=== PATIENT | female | born 1945 | race Caucasian/White ===

== ENCOUNTER → 2018-07-10 08:11 | Outpatient (CLI) | payer OTHER, SELFPAY ==
[2018-07-10 08:46] LABS: Add Manual Diff / Slide Review NO; Eosinophils Percent Auto 0.8 % (2-4); Hemoglobin 14.7 g/dL (12.0-16.0); Lymphocytes Percent Auto 25.9 % (25-40); Mean Corpuscular HGB Conc 35.1 % (30-36); Mean Corpuscular Hemoglobin 31.4 PG (26-34); Mean Corpuscular Volume 89.4 fL (80-100); Monocytes Percent Auto 10.7 % (3-14); Neutrophils Absolute Auto 3100 /uL (3000-5900); Neutrophils Percent Auto 61.6 % (50-75); Platelet Count 229 X10^3/uL (150-400); Red Blood Cell Count 4.69 X10^6/uL (4.0-5.2); Red Cell Distribution Width 13.9 % (11.6-14.8)
[2018-07-10 08:55] LABS: Appearance Urine UA CLEAR; Bilirubin Urine UA NEGATIVE (NEGATIVE); Color Urine UA YELLOW; Glucose Urine UA NEGATIVE (Normal); Ketones Urine UA NEGATIVE (NEGATIVE); Leukocyte Esterase Urine UA TRACE (NEGATIVE); Nitrite Urine UA Negative (Negative); Occult Blood Urine UA NEGATIVE (Negative); Protein Urine UA NEGATIVE (Negative); Urobilinogen Urine UA 0.2 E.U./dL (0.2)
[2018-07-10 08:59] LABS: Alanine Aminotransferase 33 IU/L (9-52); Albumin 4.7 g/dL (3.5-5.0); Albumin Globulin Ratio 1.4 (1.0-2.8); Alkaline Phosphatase 48 U/L (38-126); Aspartate Aminotransferase 33 IU/L (14-36); BUN Creatinine Ratio 18.8 (6-22); Bilirubin Total 0.4 mg/dL (0.2-1.3); Blood Urea Nitrogen 15 mg/dL (7-17); Calcium 9.6 mg/dL (8.4-10.2); Carbon Dioxide 37 mmol/L (22-32); Chloride 99 mmol/L (98-107); Cholesterol 224 mg/dL (140-199); Estimated Glomerular Filt Rate > 60.0 mL/min (>60); Globulin 3.3 g/dL (1.7-4.1); Glucose 92 mg/dL (80-110); HDL Cholesterol 71 mg/dL (40-60); HEMOLYSIS < 15 (0-50); LDL Cholesterol Calculated 127 mg/dL (<100); Potassium 3.9 mmol/L (3.4-5.1); Sodium 144 mmol/L (137-145); Triglycerides 131 mg/dL (35-150)
[2018-07-10 09:22] LABS: RBC Urine None Seen (0-5/HPF)
[2018-07-10 09:34] LABS: Bacteria Urine Occasional (0-1); Culture Indicated Urine Specimen Cultured; WBC Urine 0-1/HPF (0-5/HPF)
== END ==
PROVIDERS: PCP Family Medicine; Visit Provider Family Medicine
DX: I10 Essential (primary) hypertension (principal); E78.5 Hyperlipidemia, unspecified
CPT/HCPCS: 36415; 80053; 80061; 81003; 81015; 84443; 85025; 87086

== ENCOUNTER 2019-04-20 07:33 | Day surgery (SDC) | payer OTHER, SELFPAY ==
[2019-04-04 10:37] VITALS: BMI 25.0
[2019-04-20] VITALS (8 sets, daily range): BP systolic 109–153; BP diastolic 60–87; PULSE 49–71; RESP 9–16; TEMP 35.9–36.8; O2SAT 93–100; BMI 25.0
[2019-04-20] MEDS: LACTATED RINGERS 1,000 ML 100 ML IV (08:15)
--- NOTE | 2019-04-20 08:19 | PM.PREOP ---
Pre-operative Note Interval Note History & Physical reviewed/Exam performed by Physician: Yes Changes to H&P: No
[2019-04-20] MEDS: CEFAZOLIN 2 GM/100 ML FROZ.PIGGY IV (08:32)
[2019-04-20] MEDS: BUPIVACAINE 0.5% W/ EPI (PF) VIAL 30 ML INJ (09:02)
--- NOTE | 2019-04-20 10:05 | PM.OP.1 ---
Operative Date/Time/Diagnoses Date of procedure: 04/20/19 Time of procedure: 10:05 Pre-op diagnosis: Symptomatic uterovaginal prolapse Post-op diagnosis: same Procedure & Clinicians Procedure: LeFort colpocleisis Same procedure as scheduled: Yes Indications: Symptomatic uterovaginal prolapse Surgeon: Indiana Knapp Click Yes if Unassisted: Yes Anesthesia Type: General Operative Notes Findings: Uterovaginal prolapse Closure Type: primary Specimen(s): none sent Estimated Blood Loss (mL): 50 Blood products transfused: none Procedure in detail: - Patient was brought to the operating room where she was in a supine position in [facility] and underwent a light general anesthetic. She was prepped and draped in the usual sterile fashion. Her bladder was drained. Antibiotics, 2 g of Ancef, were in prior to beginning of the case. Warming was in place. Pulsatile stockings were in place. Area on anterior and posterior wall of the prolapse were marked with a marking pen and injected with a dilute solution of half percent Marcaine with epinephrine. The skin was incised with a scalpel and undermined with and removed removed with Metzenbaum scissors. 2-0 Vicryl suture was used in an interrupted fashion to close anterior to posterior on the sides creating a tunnel from the cervix to the external area. 0 Vicryl suture interrupted was placed from the anterior cervical fascia to the posterior cervical fascia to invert the cervix. A plicating suture with 0 Vicryl suture was used at the bladder neck. The anterior to posterior vaginal incision was closed 2 0 Vicryl suture. Counts of instruments and sponges were correct. Patient went to recovery room in good condition. Complications: none Condition: stable Disposition: same day surgery Plan for aftercare: Follow-up in 2 weeks
--- NOTE | 2019-04-20 10:09 | P.OP_ITS ---
Operative Date/Time/Diagnoses Date of procedure: 04/20/19 Time of procedure: 10:05 Pre-op diagnosis: Symptomatic uterovaginal prolapse Post-op diagnosis: same Procedure & Clinicians Procedure: LeFort colpocleisis Same procedure as scheduled: Yes Indications: Symptomatic uterovaginal prolapse Surgeon: nIdiana Knapp Click Yes if Unassisted: Yes Anesthesia Type: General Operative Notes Findings: Uterovaginal prolapse Closure Type: primary Specimen(s): none sent Estimated Blood Loss (mL): 50 Blood products transfused: none Procedure in detail: - Patient was brought to the operating room where she was in a supine position in [facility] and underwent a light general anesthetic. She was prepped and draped in the usual sterile fashion. Her bladder was drained. Antibiotics, 2 g of Ancef, were in prior to beginning of the case. Warming was in place. Pulsatile stockings were in place. Area on anterior and posterior wall of the prolapse were marked with a marking pen and injected with a dilute solution of half percent Marcaine with epinephrine. The skin was incised with a scalpel and undermined with and removed removed with Metzenbaum scissors. 2-0 Vicryl suture was used in an interrupted fashion to close anterior to posterior on the sides creating a tunnel from the cervix to the external area. 0 Vicryl suture interrupted was placed from the anterior cervical fascia to the posterior cervical fascia to invert the cervix. A plicating suture with 0 Vicryl suture was used at the bladder neck. The anterior to posterior vaginal incision was closed 2 0 Vicryl suture. Counts of instruments and sponges were correct. Patient went to recovery room in good condition. Complications: none Condition: stable Disposition: same day surgery Plan for aftercare: Follow-up in 2 weeks
--- NOTE | 2019-04-20 11:01 | SUR.PHASEII ---
Assumed care at this time from Alexander Flynn RN. Prescription given to son to get filled, pt drinking and has no complaints at this time
--- NOTE | 2019-04-20 11:08 | SUR.PHASEII ---
Son at bedside, no complaints from pt.
--- NOTE | 2019-04-20 11:29 | SUR.PHASEII ---
Assisted to BR to void, voided on commode. Steady when up.
--- NOTE | 2019-04-20 17:47 | SUR.PHASEII ---
Late entry: Pt dressed when ready and left when ready and in stable condition.
== END 2019-04-20 11:45 | disposition home or self-care (01) ==
PROVIDERS: PCP Family Medicine; Visit Provider Specialist
PROC: (CPT 57120; principal; 2019-04-20 08:45)
DX: N81.3 Complete uterovaginal prolapse (principal); I10 Essential (primary) hypertension; E78.5 Hyperlipidemia, unspecified
CPT/HCPCS: 57120; J0690; J1100; J1885; J2405; J2704; J3010

== ENCOUNTER → 2019-05-07 08:28 | Outpatient (CLI) | payer OTHER, SELFPAY ==
[2019-05-07 09:48] LABS: Appearance Urine UA CLEAR; Bilirubin Urine UA NEGATIVE (NEGATIVE); Color Urine UA YELLOW; Glucose Urine UA NEGATIVE (Negative); Ketones Urine UA NEGATIVE (NEGATIVE); Leukocyte Esterase Urine UA 3+ (NEGATIVE); Nitrite Urine UA NEGATIVE (Negative); Occult Blood Urine UA TRACE-INTACT (Negative); Protein Urine UA TRACE (Negative); Specific Gravity Urine UA 1.015 (1.000-1.035); Urobilinogen Urine UA 0.2 E.U./dL (0.2)
[2019-05-07 10:07] LABS: Bacteria Urine None Seen
[2019-05-07 10:08] LABS: Amorphous Sediment Urine 3+; Culture Indicated Urine Cult Not Indicated; RBC Urine 1-5/HPF (0-5/HPF); Squamous Epithelial Cell Urine 5-10 /HPF (0-5/HPF); Transitional Epi Cells Urine 5-10/HPF (0-5/HPF); WBC Urine 5-10/HPF (0-5/HPF)
[2019-05-07 10:59] LABS: Add Manual Diff / Slide Review NO; Basophils Absolute Auto 100 /uL (0-100); Basophils Percent Auto 1.1 % (0-2); Eosinophils Absolute Auto 100 /uL (0-450); Eosinophils Percent Auto 2.1 % (2-4); Hematocrit 40.1 % (36-46); Hemoglobin 13.6 g/dL (12.0-16.0); Lymphocytes Absolute Auto 1200 /uL (1100-4500); Mean Corpuscular Hemoglobin 30.8 PG (26-34); Mean Corpuscular Volume 90.7 fL (80-100); Monocytes Absolute Auto 500 /uL (0-900); Monocytes Percent Auto 11.5 % (3-14); Neutrophils Absolute Auto 2600 /uL (1500-7000); Neutrophils Percent Auto 59.3 % (50-75); Platelet Count 243 X10^3/uL (150-400); Red Blood Cell Count 4.42 X10^6/uL (4.0-5.2); Red Cell Distribution Width 13.5 % (11.6-14.8); White Blood Cell Count 4.4 X10^3/uL (4.5-11.0)
[2019-05-07 11:18] LABS: Alanine Aminotransferase 18 IU/L (9-52); Albumin 4.4 g/dL (3.5-5.0); Albumin Globulin Ratio 1.4 (1.0-2.8); Alkaline Phosphatase 54 U/L (38-126); Aspartate Aminotransferase 26 IU/L (14-36); BUN Creatinine Ratio 21.4 (6-22); Bilirubin Total 0.4 mg/dL (0.2-1.3); Blood Urea Nitrogen 15 mg/dL (7-17); Calcium 9.4 mg/dL (8.4-10.2); Carbon Dioxide 33 mmol/L (22-32); Chloride 101 mmol/L (98-107); Cholesterol 208 mg/dL (140-199); Estimated Glomerular Filt Rate > 60.0 mL/min (>60); Globulin 3.2 g/dL (1.7-4.1); Glucose 92 mg/dL (80-110); HDL Cholesterol 63 mg/dL (40-60); HEMOLYSIS < 15 (0-50); LDL Cholesterol Calculated 121 mg/dL (<100); Potassium 4.4 mmol/L (3.4-5.1); Sodium 142 mmol/L (137-145); Total Protein 7.6 g/dL (6.3-8.2); Triglycerides 122 mg/dL (35-150)
[2019-05-07 11:43] LABS: Thyroid Stimulating Hormone 4.01 uIU/mL (0.47-4.68)
== END ==
PROVIDERS: PCP Family Medicine; Visit Provider Family Medicine
DX: E78.5 Hyperlipidemia, unspecified (principal); I10 Essential (primary) hypertension; Z51.81 Encounter for therapeutic drug level monitoring
CPT/HCPCS: 36415; 80053; 80061; 81003; 81015; 84443; 85025

== ENCOUNTER → 2019-11-27 09:03 | Outpatient (CLI) | payer MEDICARE, SELFPAY ==
[2019-11-27 11:15] LABS: Alanine Aminotransferase 19 IU/L (<35); Albumin 4.3 g/dL (3.5-5.0); Albumin Globulin Ratio 1.3 (1.0-2.8); Alkaline Phosphatase 60 U/L (38-126); Aspartate Aminotransferase 28 IU/L (14-36); BUN Creatinine Ratio 21.3 (6-22); Bilirubin Total 0.3 mg/dL (0.2-1.3); Blood Urea Nitrogen 17 mg/dL (7-17); Calcium 9.5 mg/dL (8.4-10.2); Carbon Dioxide 31 mmol/L (22-32); Chloride 94 mmol/L (98-107); Cholesterol 216 mg/dL (140-199); Estimated Glomerular Filt Rate > 60.0 mL/min (>60); Globulin 3.2 g/dL (1.7-4.1); Glucose 84 mg/dL (80-110); HDL Cholesterol 61 mg/dL (40-60); HEMOLYSIS < 15 (0-50); LDL Cholesterol Calculated 128 mg/dL (<100); Potassium 4.7 mmol/L (3.4-5.1); Sodium 135 mmol/L (137-145); Total Protein 7.5 g/dL (6.3-8.2); Triglycerides 137 mg/dL (35-150)
== END ==
PROVIDERS: PCP Family Medicine; Visit Provider Family Medicine
DX: E78.5 Hyperlipidemia, unspecified (principal); I10 Essential (primary) hypertension
CPT/HCPCS: 36415; 80053; 80061

== ENCOUNTER → 2020-08-19 15:09 | Outpatient (CLI) | payer MEDICARE, SELFPAY | PROVIDERS: PCP Family Medicine; Visit Provider Specialist | DX: N39.0 Urinary tract infection, site not specified (principal); N36.2 Urethral caruncle; N95.2 Postmenopausal atrophic vaginitis; R39.9 Unspecified symptoms and signs involving the genitourinary system | CPT/HCPCS: 51798; 81002; 87086; 99214 ==

== ENCOUNTER → 2020-09-22 08:54 | Outpatient (CLI) | payer MEDICARE, SELFPAY ==
[2020-09-22 09:49] LABS: Alanine Aminotransferase 23 IU/L (<35); Albumin 4.3 g/dL (3.5-5.0); Albumin Globulin Ratio 1.2 (1.0-2.8); Alkaline Phosphatase 56 U/L (38-126); Aspartate Aminotransferase 32 IU/L (14-36); BUN Creatinine Ratio 26.4 (6-22); Bilirubin Total 0.5 mg/dL (0.2-1.3); Blood Urea Nitrogen 19 mg/dL (7-17); Calcium 9.3 mg/dL (8.4-10.2); Carbon Dioxide 38 mmol/L (22-32); Chloride 97 mmol/L (98-107); Estimated Glomerular Filt Rate > 60.0 mL/min (>60); Globulin 3.5 g/dL (1.7-4.1); Glucose 95 mg/dL (80-110); HEMOLYSIS < 15 (0-50); Potassium 3.8 mmol/L (3.4-5.1); Sodium 136 mmol/L (137-145); Total Protein 7.8 g/dL (6.3-8.2)
== END ==
PROVIDERS: PCP Family Medicine; Referring Provider Family Medicine; Visit Provider Family Medicine
DX: E78.5 Hyperlipidemia, unspecified (principal); I10 Essential (primary) hypertension
CPT/HCPCS: 36415; 80053

== ENCOUNTER → 2021-09-17 08:06 | Outpatient (CLI) | payer MEDICARE, SELFPAY ==
[2021-09-17 08:33] LABS: Add Manual Diff / Slide Review NO; Basophils Absolute Auto 0 /uL (0-100); Basophils Percent Auto 1.2 % (0-2); Eosinophils Absolute Auto 100 /uL (0-450); Eosinophils Percent Auto 1.5 % (2-4); Hematocrit 40.5 % (36-46); Hemoglobin 13.7 g/dL (12.0-16.0); Lymphocytes Absolute Auto 1100 /uL (1100-4500); Lymphocytes Percent Auto 27.1 % (25-40); Mean Corpuscular HGB Conc 33.7 % (30-36); Mean Corpuscular Hemoglobin 30.5 PG (26-34); Mean Corpuscular Volume 90.5 fL (80-100); Monocytes Absolute Auto 500 /uL (0-900); Monocytes Percent Auto 11.2 % (3-14); Neutrophils Absolute Auto 2500 /uL (1500-7000); Platelet Count 222 X10^3/uL (150-400); Red Blood Cell Count 4.48 X10^6/uL (4.0-5.2); Red Cell Distribution Width 13.5 % (11.6-14.8); White Blood Cell Count 4.2 X10^3/uL (4.5-11.0)
[2021-09-17 08:50] LABS: Alanine Aminotransferase 20 IU/L (<35); Albumin 4.4 g/dL (3.5-5.0); Albumin Globulin Ratio 1.4 (1.0-2.8); Alkaline Phosphatase 48 U/L (38-126); Aspartate Aminotransferase 31 IU/L (14-36); BUN Creatinine Ratio 21.8 (6-22); Bilirubin Total 0.4 mg/dL (0.2-1.3); Blood Urea Nitrogen 17 mg/dL (7-17); Calcium 9.3 mg/dL (8.4-10.2); Carbon Dioxide 33 mmol/L (22-32); Chloride 98 mmol/L (98-107); Cholesterol 203 mg/dL (140-199); Estimated Glomerular Filt Rate > 60.0 mL/min (>60); Globulin 3.2 g/dL (1.7-4.1); Glucose 94 mg/dL (80-110); HDL Cholesterol 73 mg/dL (40-60); HEMOLYSIS < 15 (0-50); LDL Cholesterol Calculated 108 mg/dL (<100); Potassium 4.5 mmol/L (3.4-5.1); Sodium 137 mmol/L (137-145); Total Protein 7.6 g/dL (6.3-8.2); Triglycerides 111 mg/dL (35-150)
[2021-09-17 09:56] LABS: Thyroid Stimulating Hormone 3.73 uIU/mL (0.47-4.68)
== END ==
PROVIDERS: PCP Family Medicine; Referring Provider Family Medicine; Visit Provider Family Medicine
DX: I10 Essential (primary) hypertension (principal); E78.5 Hyperlipidemia, unspecified; R53.83 Other fatigue
CPT/HCPCS: 36415; 80053; 80061; 84443; 85025

== ENCOUNTER → 2022-06-01 13:52 | Outpatient (CLI) | payer MEDICARE, SELFPAY ==
--- NOTE | 2022-06-01 13:55 | DI.MG.S_ITS ---
BILATERAL DIGITAL SCREENING MAMMOGRAM 3D/2D WITH CAD: 06/01/2022 CLINICAL: Routine screening. Family history of breast cancer. Comparison is made to exams dated: 11/11/2016 mammogram and 05/24/2013 mammogram - [facility]. The tissue of both breasts is heterogeneously dense. This may lower the sensitivity of mammography. Current study was also evaluated with a Computer Aided Detection (CAD) system. There are benign calcifications in the right breast. No significant masses, calcifications, or other findings are seen in either breast. There has been no significant interval change. IMPRESSION: BENIGN There is no mammographic evidence of malignancy. A 1 year screening mammogram is recommended. Based on the Tyrer Cuzick model (a risk assessment model) the patient's lifetime risk is 7.7% and her 10 year risk is 0.0%. According to the ACR, ACS, and NCCN guidelines, an annual breast MRI exam along with mammogram is recommended if the patient's lifetime risk is 20% or greater. This exam was interpreted at Station ID: [id number]. NOTE: For mammograms, a report in lay terms will be sent to the patient. Approximately 15% of breast malignancies will not be visualized mammographically. In the management of a palpable breast mass, a negative mammogram must not discourage biopsy of a clinically suspicious lesion. Electronically Signed By: Chuy givens/[email or web address]:06/01/2022 21:24:46 letter sent: Normal Exam ACR BI-RADS Category 2: Benign Finding(s) 3342F
== END ==
PROVIDERS: PCP Family Medicine; Referring Provider Nurse Practitioner; Visit Provider Nurse Practitioner
DX: Z12.31 Encounter for screening mammogram for malignant neoplasm of breast (principal); Z80.3 Family history of malignant neoplasm of breast
CPT/HCPCS: 77063; 77067

== ENCOUNTER → 2022-11-19 09:02 | Outpatient (CLI) | payer MEDICARE, SELFPAY ==
[2022-11-19 10:33] LABS: Alanine Aminotransferase 21 IU/L (<35); Alkaline Phosphatase 62 U/L (38-126); Aspartate Aminotransferase 27 IU/L (14-36); BUN Creatinine Ratio 17.6 (6-22); Bilirubin Total 0.4 mg/dL (0.2-1.3); Blood Urea Nitrogen 12 mg/dL (7-17); Calcium 8.9 mg/dL (8.4-10.2); Carbon Dioxide 32 mmol/L (22-32); Chloride 98 mmol/L (98-107); Cholesterol 202 mg/dL (140-199); Estimated Glomerular Filt Rate > 60 mL/min (>60); Glucose 84 mg/dL (80-110); HDL Cholesterol 62 mg/dL (40-60); HEMOLYSIS < 15 (0-50); LDL Cholesterol Calculated 113 mg/dL (<100); Potassium 4.5 mmol/L (3.4-5.1); Sodium 136 mmol/L (137-145); Triglycerides 137 mg/dL (35-150)
[2022-11-19 16:42] LABS: Albumin 3.9 g/dL (3.5-5.0); Albumin Globulin Ratio 1.3 (1.0-2.8); Globulin 3.1 g/dL (1.7-4.1)
== END ==
PROVIDERS: PCP Family Medicine; Referring Provider Family Medicine; Visit Provider Family Medicine
DX: I10 Essential (primary) hypertension (principal); E78.2 Mixed hyperlipidemia
CPT/HCPCS: 36415; 80053; 80061

== ENCOUNTER 2024-03-03 10:25 | Emergency (ER) | payer MEDICARE, SELFPAY ==
--- NOTE | 2024-03-03 10:37 | PC.NURSE ---
Called for triage @ 1033: No answer. Pt had called prior to registration asking if provider would order strong pain medication. I told her prior to triage she would have to check in and be evaluated, that I could not say what a provider would or would not prescribe.
== END 2024-03-03 10:40 | disposition left against medical advice (07) ==
PROVIDERS: Emergency Provider Emergency Medicine; PCP Family Medicine
DX: Z76.0 Encounter for issue of repeat prescription (principal)

== ENCOUNTER → 2024-03-21 15:37 | Outpatient (CLI) | payer MEDICARE, SELFPAY ==
--- NOTE | 2024-03-21 | DI.MRI.S_ITS ---
PROCEDURE: MR SHOULDER RT WO CON INDICATIONS: RIGHT SHOULDER PAIN / RULE OUT ROTATOR CUFF TEAR TECHNIQUE: Noncontrast oblique coronal T2 fast spin echo with fat saturation, oblique sagittal T1 spin echo and T2 fast spin echo with fat saturation, axial T1 spin echo and T2 fast spin echo with fat saturation through the shoulder. COMPARISON: None. FINDINGS: Image quality: Excellent. Rotator cuff: Low-grade bursal surface partial-thickness tear involving distal supraspinatus at its insertion on the humeral head is seen extending to musculotendinous junction. Distal infraspinatus tendinosis is noted. Subscapularis tendinosis is also seen. No full-thickness rotator cuff tendon rupture. Sagittal images demonstrate mild supraspinatus muscle atrophy. Bones and bursae: No bone marrow contusions or fractures. Mild to moderate acromioclavicular joint osteoarthritic changes are seen with joint space narrowing and downward osteophyte formation depressing the musculotendinous junction of supraspinatus. Small amount of joint fluid and subacromial subdeltoid bursal fluid is seen, no gross loose bodies. Capsule and soft tissues: Labrum is grossly intact. The long head of the biceps tendon demonstrates normal location and morphology. The rotator interval appears normal, without fibrosis. The coracohumeral ligament is normal in thickness. IMPRESSION: 1. Low-grade bursal surface partial-thickness tear involving distal supraspinatus extending to musculotendinous junction. Distal infraspinatus and subscapularis tendinosis. No full-thickness rotator cuff tendon rupture. Mild supraspinatus muscle atrophy. 2. Oppy-vy-zaxjilbk acromioclavicular joint osteoarthritis. No fracture or dislocation. Small amount of joint effusion and subacromial subdeltoid bursal fluid. 3. No gross focal labral tear. Dictated by: Moses Rico M.D. on 03/22/2024 at 9:39 Approved by: Moses Rico M.D. on 03/22/2024 at 9:44
== END ==
PROVIDERS: Family Provider Family Medicine; PCP Family Medicine; Referring Provider Physician Assistant Surgical; Visit Provider Physician Assistant Surgical
DX: M75.111 Incomplete rotator cuff tear or rupture of right shoulder, not specified as traumatic (principal); M19.011 Primary osteoarthritis, right shoulder; M25.511 Pain in right shoulder
CPT/HCPCS: 73221

== ENCOUNTER 2024-03-21 16:19 | Emergency (ER) | payer MEDICARE, SELFPAY ==
[2024-03-21] VITALS (13 sets, daily range): BP systolic 164–213; BP diastolic 78–99; PULSE 65–76; RESP 16–18; TEMP 36.6; O2SAT 95–98; BMI 24.9
--- NOTE | 2024-03-21 16:38 | DI.RAD.S_ITS ---
PROCEDURE: XR CHEST 1V INDICATIONS: chest pain TECHNIQUE: One view of the chest was acquired. COMPARISON: [facility], , CHEST 2 VIEW, 03/06/2010, 12:49. FINDINGS: Surgical changes and devices: None. Lungs and pleura: Lungs are clear. No pleural effusions or pneumothorax. Mediastinum: Mediastinal contours appear normal. Heart size is normal. Bones and chest wall: No suspicious bony lesions. Overlying soft tissues appear unremarkable. IMPRESSION: No acute cardiopulmonary abnormality is seen. Dictated by: Chuy Carpenter M.D. on 03/21/2024 at 17:28 Approved by: Chuy Carpenter M.D. on 03/21/2024 at 17:29
[2024-03-21] MEDS: ASPIRIN 81 MG CHEW TAB 324 MG PO (16:47)
[2024-03-21 17:00] LABS: Add Manual Diff / Slide Review NO; Basophils Absolute Auto 100 /uL (0-100); Basophils Percent Auto 1.3 % (0-2); Eosinophils Absolute Auto 0 /uL (0-450); Eosinophils Percent Auto 0.7 % (2-4); Hematocrit 39.8 % (36-46); Hemoglobin 13.7 g/dL (12.0-16.0); Lymphocytes Absolute Auto 1100 /uL (1100-4500); Lymphocytes Percent Auto 19.1 % (25-40); Mean Corpuscular HGB Conc 34.4 % (30-36); Mean Corpuscular Hemoglobin 30.8 PG (26-34); Mean Corpuscular Volume 89.7 fL (80-100); Monocytes Absolute Auto 500 /uL (0-900); Monocytes Percent Auto 9.7 % (3-14); Neutrophils Absolute Auto 3800 /uL (1500-7000); Neutrophils Percent Auto 69.2 % (50-75); Platelet Count 215 X10^3/uL (150-400); Red Blood Cell Count 4.44 X10^6/uL (4.0-5.2); Red Cell Distribution Width 14.2 % (11.6-14.8); White Blood Cell Count 5.5 X10^3/uL (4.5-11.0)
[2024-03-21 17:05] LABS: Alanine Aminotransferase 27 IU/L (<35); Albumin 4.5 g/dL (3.5-5.0); Albumin Globulin Ratio 1.6 (1.0-2.8); Alkaline Phosphatase 64 U/L (38-126); Aspartate Aminotransferase 32 IU/L (14-36); BUN Creatinine Ratio 14.5 (6-22); Bilirubin Total 0.4 mg/dL (0.2-1.3); Blood Urea Nitrogen 9 mg/dL (7-17); Calcium 8.7 mg/dL (8.4-10.2); Carbon Dioxide 31 mmol/L (22-32); Chloride 95 mmol/L (98-107); Creatine Kinase 81 U/L (30-135); Estimated Glomerular Filt Rate > 60 mL/min (>60); Globulin 2.9 g/dL (1.7-4.1); Glucose 123 mg/dL (80-110); HEMOLYSIS < 15 (0-50); Lipase 118 U/L (23-300); Sodium 131 mmol/L (137-145); Total Protein 7.4 g/dL (6.3-8.2)
[2024-03-21 17:17] LABS: Troponin I < 0.012 ng/mL (0.01-0.034)
[2024-03-21 19:37] LABS: Troponin I < 0.012 ng/mL (0.01-0.034)
--- NOTE | 2024-03-21 20:04 | ED_ITS ---
HPI - Chest Pain General Chief Complaint: Chest Pain Stated Complaint: pain down rt arm and into back Time Seen by Provider: 03/21/24 18:52 Source: patient Mode of arrival: Ambulatory Limitations: no limitations History of Present Illness HPI narrative: 70-year-old female who has had issues with right shoulder pain/frozen right shoulder for quite a few weeks or longer had an MRI earlier today and was sent to the emergency department because she expressed concerns that the shoulder discomfort was actually hurting in the center of her chest and also her back. This discomfort is actually been there for several weeks. The MRI was ordered by Orthopedic surgery. Related Data Home Medications Medication Instructions Recorded Confirmed calcium carbonate 600 mg-vitamin 1 tab PO DAILY ##0 05/10/11 03/05/24 D3 20 mcg (800 unit) chewable tablet (Caltrate 600 plus D) iwanthco-ciy-aoqum acid 0.4 1 tab PO DAILY ##0 05/10/11 03/05/24 mg-lycopene 300 mcg-lutein 250 mcg tablet (Centrum Silver) Previous Rx's Medication Instructions Recorded pravastatin 40 mg tablet See Rx Instructions .Route 09/26/23 .COMPLEX #90 tabs losartan 25 mg tablet 25 mg PO DAILY for blood pressure 02/03/24 #90 tabs famotidine 20 mg tablet 20 mg PO DAILY #30 tabs 03/21/24 meloxicam 7.5 mg tablet 7.5 mg PO BID PRN pain #60 tabs 03/21/24 Allergies Allergy/AdvReac Type Severity Reaction Status Date / Time No Known Drug Allergies Allergy Verified 03/05/24 16:33 Review of Systems Constitutional Constitutional: Reports system reviewed and no additional complaints, except as documented Cardiovascular Cardiovascular: Reports system reviewed and no additional complaints, except as documented Respiratory Respiratory: Reports system reviewed and no additional complaints, except as documented Gastrointestinal Gastrointestinal: Reports system reviewed and no additional complaints, except as documented Integumentary/Breasts Skin/Breast: Reports system reviewed and no additional complaints, except as documented Patient History Medical History Wears glasses Acute right ankle pain Ankle pain, left Anxiety Postmenopausal atrophic vaginitis Urethral caruncle Lower urinary tract symptoms (LUTS) Bladder retention Cystocele Alopecia (05/2014) Hypertension (09/2013) Hyperlipidemia (03/2010) Osteopenia (01/2004) Skin cancer (Unknown) Surgical History No history of previous surgery Family History Father Heart disease Diabetes mellitus Mother Breast cancer Heart disease Social History household members: spouse Smoking Status: Never smoker second hand exposure: No alcohol intake: current substance use type: does not use Smoking Status: Never smoker alcohol intake frequency: a few times a week Substance Use Type: does not use Exam Initial Vital Signs Initial Vital Signs: Vital Signs Pulse Oximetry 98 03/21/24 16:30 HENMT Head: normal to inspection and normocephalic Resp Effort & Inspection: normal respiratory effort Auscultation: clear to auscultation bilaterally Cardio Rate: regular rate Rhythm: regular rhythm Skin General: no rashes or lesions noted Neuro General: patient alert and patient awake Course Orders Ordered: ED Orders 03/21/24 18:42 Trop I [Troponin I] Stat Discontinued Medications Aspirin (Aspirin 81 Mg Chew Tab) 324 mg PO NOW ONE Stop: 03/21/24 16:39 Last Admin: 03/21/24 16:47 Dose: 324 mg Documented By: Vital Signs Vital signs: Vital Signs - 8 hr 03/21/24 18:00 03/21/24 18:00 03/21/24 18:30 Pulse Rate 67 Respiratory Rate Blood Pressure 174/83 H 171/78 H Pulse Oximetry 95 Oxygen Delivery Method 03/21/24 18:30 03/21/24 19:00 03/21/24 19:00 Pulse Rate 70 66 Respiratory Rate Blood Pressure 167/82 H Pulse Oximetry 95 96 Oxygen Delivery Method 03/21/24 19:23 03/21/24 19:23 03/21/24 19:30 Pulse Rate 69 Respiratory Rate 16 Blood Pressure 205/93 H 169/91 H Pulse Oximetry 96 Oxygen Delivery Method 03/21/24 19:30 03/21/24 20:00 03/21/24 20:08 Pulse Rate 68 68 66 Respiratory Rate 18 17 17 Blood Pressure Pulse Oximetry 96 96 97 Oxygen Delivery Method Room Air Room Air Room Air 03/21/24 20:08 Pulse Rate Respiratory Rate Blood Pressure 193/90 H Pulse Oximetry Oxygen Delivery Method MDM - Chest Pain Lab Data Attestation: I reviewed the patient's lab results. 03/21/24 16:42 03/21/24 16:42 Labs: Lab Results 03/21/24 03/21/24 Range/Units 16:42 18:42 WBC 5.5 (4.5-11.0) X10^3/uL RBC 4.44 (4.0-5.2) X10^6/uL Hgb 13.7 (12.0-16.0) g/dL Hct 39.8 (36-46) % MCV 89.7 (80-100) fL MCH 30.8 (26-34) PG MCHC 34.4 (30-36) % RDW 14.2 (11.6-14.8) % Plt Count 215 (150-400) X10^3/uL Neut % (Auto) 69.2 (50-75) % Lymph % (Auto) 19.1 L (25-40) % [place] % (Auto) 9.7 (3-14) % Eos % (Auto) 0.7 L (2-4) % Baso % (Auto) 1.3 (0-2) % Neut # (Auto) 3800 (4240-7013) /uL Lymph # (Auto) 1100 (9036-9319) /uL [place] # (Auto) 500 (0-900) /uL Eos # (Auto) 0 (0-450) /uL Baso # (Auto) 100 (0-100) /uL Sodium 131 L (137-145) mmol/L Potassium 4.0 (3.4-5.1) mmol/L Chloride 95 L (98-107) mmol/L Carbon Dioxide 31 (22-32) mmol/L BUN 9 (7-17) mg/dL Creatinine 0.62 (0.52-1.04) mg/dL Estimated GFR > 60 (>60) mL/min BUN/Creatinine Ratio 14.5 (6-22) Glucose 123 H (80-110) mg/dL Calcium 8.7 (8.4-10.2) mg/dL Total Bilirubin 0.4 (0.2-1.3) mg/dL AST 32 (14-36) IU/L ALT 27 (<35) IU/L Alkaline Phosphatase 64 (38-126) U/L Total Creatine Kinase 81 (30-135) U/L Troponin I < 0.012 < 0.012 (0.01-0.034) ng/mL Total Protein 7.4 (6.3-8.2) g/dL Albumin 4.5 (3.5-5.0) g/dL Globulin 2.9 (1.7-4.1) g/dL Albumin/Globulin Ratio 1.6 (1.0-2.8) Lipase 118 (23-300) U/L Imaging Data Chest x-ray: Radiologist's Impression: PROCEDURE: XR CHEST 1V INDICATIONS: chest pain TECHNIQUE: One view of the chest was acquired. COMPARISON: [facility], , CHEST 2 VIEW, 03/06/2010, 12:49. FINDINGS: Surgical changes and devices: None. Lungs and pleura: Lungs are clear. No pleural effusions or pneumothorax. Mediastinum: Mediastinal contours appear normal. Heart size is normal. Bones and chest wall: No suspicious bony lesions. Overlying soft tissues appear unremarkable. IMPRESSION: No acute cardiopulmonary abnormality is seen. ECG Data Attestation: I personally reviewed and interpreted this ECG as follows: Interpretation: Sinus rhythm Ventricular rate is 68 Normal axis Normal QRS Normal QTC No ST T wave changes MDM Narrative Medical decision making narrative: Chest x-ray is unremarkable and has 2- troponins. Low suspicion that her symptoms today are related ACS and I suspect that it is related to her orthopedic issues that she is having of the right shoulder. Will discharge patient home with return precautions. She expressed understanding and agreement. Discharge Plan Departure Patient Disposition: Home Clinical Impression: Right shoulder pain Instructions: DI for Shoulder Pain Activity Restrictions/Additional Instructions: I recommend that you start taking the meloxicam instead of the Motrin/ibuprofen to see if it helps with the shoulder discomfort. I also recommend that tomorrow you contact the orthopedic provider who ordered the MRI to discuss follow-up. Return to the emergency department for new symptoms. Prescriptions: New meloxicam 7.5 mg tablet 7.5 mg PO BID PRN (Reason: pain) Qty: 60 0RF famotidine 20 mg tablet 20 mg PO DAILY Qty: 30 0RF No Action Centrum Silver 0.4-300-250 mg-mcg-mcg Tablet 1 tab PO DAILY Qty: 0 Caltrate 600 plus D 600 mg (1,500 mg)-800 unit Tablet,Chewable 1 tab PO DAILY Qty: 0 Rx Instructions: pt states dose is 400 mg pravastatin 40 mg tablet See Rx Instructions .ROUTE .COMPLEX Qty: 90 1RF Dose Instruction: TAKE 1 TABLET BY MOUTH AT BEDTIME Rx Instructions: TAKE 1 TABLET BY MOUTH AT BEDTIME losartan 25 mg tablet 25 mg PO DAILY Qty: 90 1RF Referrals: Katy Benitez DO [Primary Care Provider] - Stand Alone Forms: Patient Portal/API
== END 2024-03-21 20:29 | disposition home or self-care (01) ==
PROVIDERS: Emergency Medicine; Emergency Provider Emergency Medicine; Family Provider Family Medicine; PCP Family Medicine
DX: M25.511 Pain in right shoulder (principal); R07.9 Chest pain, unspecified
CPT/HCPCS: 36415; 71045; 73221; 80053; 82550; 83690; 84484; 85025; 93005; 99284

== ENCOUNTER 2024-04-17 10:00 | Emergency (ER) | payer MEDICARE, SELFPAY ==
[2024-04-17 10:08] VITALS: PULSE 81; O2SAT 100
[2024-04-17 10:14] VITALS: BP 188/88; PULSE 87; RESP 16; TEMP 36.1; O2SAT 97; BMI 23.9
--- NOTE | 2024-04-17 10:14 | DI.CT.S_ITS ---
PROCEDURE: CT HEAD/BRAIN WO CON INDICATIONS: progressive R arm weakness TECHNIQUE: Noncontrast 4.5 mm thick angled axial sections acquired from the foramen magnum to the vertex, with coronal and sagittal reformats. For radiation dose reduction, the following was used: automated exposure control, adjustment of mA and/or kV according to patient size. COMPARISON: None. FINDINGS: Image quality: Diagnostic. CSF spaces: Basal cisterns are patent. No extra-axial fluid collections. The ventricles are symmetric in size and shape. Brain: No intracranial bleeds or masses. There is cerebral volume loss for age, with resultant ventricular and sulcal prominence. There are periventricular and deep white matter chronic small vessel ischemic changes. There is intracranial internal carotid artery atherosclerosis. Skull and face: Calvarium and visualized facial bones appear intact, without suspicious lesions. Sinuses: Visualized sinuses and mastoids are clear. IMPRESSION: No acute intracranial pathology. Dictated by: Carly Laws MD, PhD on 04/17/2024 at 11:14 Approved by: Carly Laws MD, PhD on 04/17/2024 at 11:16
--- NOTE | 2024-04-17 10:23 | DI.CT.S_ITS ---
PROCEDURE: CT ANGIO HEAD AND NECK INDICATIONS: PROGRESSIVE RUE WEAKNESS TECHNIQUE: After the administration of intravenous contrast, 1 mm thick sections acquired from the aortic arch through the [place] of [place]. 3-dimensional ulewqui-jivneofrf-lcvxynmotp (MIP) and/or volume rendering reformats were acquired of the central intracranial vasculature and neck separately. For radiation dose reduction, the following was used: automated exposure control, adjustment of mA and/or kV according to patient size. COMPARISON: [facility], CT, CT HEAD/BRAIN WO CON, 04/17/2024, 10:27. FINDINGS: Image quality: Diagnostic. HEAD CT ANGIOGRAPHY: Anterior circulation: Intracranial internal carotid arteries are normal in size and flow. The flow within the paired anterior cerebral arteries is normal and symmetric. The flow within the middle cerebral arteries is normal and symmetric. The anterior communicating artery is seen. No aneurysms are seen. Posterior circulation: Visualized portions of the vertebral arteries demonstrate normal caliber, and join to form a normal appearing basilar artery. Flow within the posterior cerebral arteries is normal and symmetric. No aneurysms are seen. NECK CT ANGIOGRAPHY: Carotid system: The great vessels demonstrate a conventional anatomy as they arise from the aortic arch. The origins of the common carotid arteries appear patent. The common carotid arteries demonstrate normal caliber and courses. The bifurcation regions are both widely patent. The internal carotid arteries demonstrate normal calibers and courses. Posterior circulation: The origins of the vertebral arteries both appear widely patent. The more superior extracranial portions of both vertebral arteries also demonstrate normal courses and calibers. They join to form a normal appearing basilar artery. Soft tissues: Visualized neck soft tissues demonstrate no suspicious abnormalities. Bones: No suspicious bony lesions. Visualized cervical spine appears normally aligned. Spine degenerative disc disease and facet arthropathy. IMPRESSION: No large vessel occlusion, vascular stenosis, vascular dissection or aneurysm. Any quantitative measurements of stenosis were performed using NASCET criteria. Dictated by: Carly Laws MD, PhD on 04/17/2024 at 11:28 Approved by: Carly Laws MD, PhD on 04/17/2024 at 11:33
--- NOTE | 2024-04-17 10:36 | ED_ITS ---
HPI - Extremity Problem General Chief complaint: Extremity Problem,Nontraumatic Stated complaint: High blood pressure, coming from PT Time Seen by Provider: 04/17/24 10:02 Source: patient Mode of arrival: Ambulatory History of Present Illness HPI Narrative: 78-year-old female with history of hypertension presents for elevated blood pressure readings at physical therapy. Patient was in physical therapy for progressive right upper extremity weakness for the last 6 weeks. She was being followed by pain management, who has subsequently referred her to neurology for evaluation of her progressive weakness. Patient states that over the last several weeks she has lost function in her right thumb and isn't able to write or button her clothing anymore due to the progressive weakness. Patient states that her pain management doctor, Dr. Nieves, has referred her to Neurology for additional evaluations. Patient saw her primary care doctor yesterday for blood pressure management and recently had her medications changed. Today at physical therapy the patient requested that her blood pressure be checked and it was 170 systolic, so they referred her to the ER for evaluation. Related Data Home Medications Medication Instructions Recorded Confirmed calcium carbonate 600 mg-vitamin 1 tab PO DAILY ##0 05/10/11 04/11/24 D3 20 mcg (800 unit) chewable tablet (Caltrate 600 plus D) bywuoplx-czc-inkue acid 0.4 1 tab PO DAILY ##0 05/10/11 04/11/24 mg-lycopene 300 mcg-lutein 250 mcg tablet (Centrum Silver) acetaminophen 500 mg tablet 1,000 mg PO .qhs PRN 04/11/24 04/11/24 (Tylenol Extra Strength) Previous Rx's Medication Instructions Recorded losartan 25 mg tablet 25 mg PO DAILY for blood pressure 02/03/24 #90 tabs meloxicam 7.5 mg tablet 7.5 mg PO BID PRN pain #60 tabs 03/21/24 amlodipine 2.5 mg tablet 2.5 mg PO DAILY #30 tabs 03/29/24 gabapentin 300 mg capsule 300 mg PO TID #60 caps 04/17/24 Allergies Allergy/AdvReac Type Severity Reaction Status Date / Time No Known Drug Allergies Allergy Verified 04/17/24 10:18 Patient History Medical History Wears glasses Acute right ankle pain Ankle pain, left Anxiety Postmenopausal atrophic vaginitis Urethral caruncle Lower urinary tract symptoms (LUTS) Bladder retention Cystocele Alopecia (05/2014) Hypertension (09/2013) Hyperlipidemia (03/2010) Osteopenia (01/2004) Skin cancer (Unknown) Surgical History No history of previous surgery Family History Father Heart disease Diabetes mellitus Mother Breast cancer Heart disease Social History household members: spouse Smoking Status: Never smoker second hand exposure: No alcohol intake: current substance use type: does not use Smoking Status: Never smoker alcohol intake frequency: a few times a week Substance Use Type: does not use Exam Initial Vital Signs Initial Vital Signs: Vital Signs Pulse Rate 81 04/17/24 10:08 Pulse Oximetry 100 04/17/24 10:08 Const: Awake, alert, no acute distress, nontoxic appearing Cardiac: regular rate, regular rhythm RESP: unlabored, clear bilaterally, no wheezing GI: Soft, nontender, nondistended, no rebound, no guarding Skin: Warm, Dry, intact, no rashes Neuro: AO x3, CN II-XII grossly intact, biceps strength intact, decreased tricep strength, unable to flex/extend thumb. Strong shrug strength Course Orders Ordered: ED Orders 04/17/24 10:14 CT head/brain wo con Stat 04/17/24 10:23 CT angio head and neck Stat 04/17/24 10:30 BNP [NT-proBNP (BNP-Adult 18+)] Stat CBC Auto Diff [Complete Blood Count AUTO DIFF] Stat CMP [Comprehensive Metabolic Panel] Stat Vital Signs Vital signs: Vital Signs - 8 hr 04/17/24 10:08 04/17/24 10:14 04/17/24 11:14 Temperature 96.9 F L Pulse Rate 81 87 Respiratory Rate 16 Blood Pressure 188/88 H Pulse Oximetry 100 97 87 L Oxygen Delivery Method Room Air 04/17/24 11:16 04/17/24 11:16 04/17/24 11:30 Temperature Pulse Rate 71 Respiratory Rate Blood Pressure 192/84 H 174/80 H Pulse Oximetry 99 Oxygen Delivery Method 04/17/24 11:30 Temperature Pulse Rate 70 Respiratory Rate Blood Pressure Pulse Oximetry 97 Oxygen Delivery Method MDM - Extremity (Nontraumatic) Lab Data 04/17/24 10:30 04/17/24 10:30 Labs: Lab Results 04/17/24 Range/Units 10:30 WBC 5.6 (4.5-11.0) X10^3/uL RBC 4.46 (4.0-5.2) X10^6/uL Hgb 13.5 (12.0-16.0) g/dL Hct 40.4 (36-46) % MCV 90.7 (80-100) fL MCH 30.3 (26-34) PG MCHC 33.4 (30-36) % RDW 14.7 (11.6-14.8) % Plt Count 252 (150-400) X10^3/uL Neut % (Auto) 70.7 (50-75) % Lymph % (Auto) 15.6 L (25-40) % [place] % (Auto) 11.1 (3-14) % Eos % (Auto) 1.5 L (2-4) % Baso % (Auto) 1.1 (0-2) % Neut # (Auto) 3900 (2527-6520) /uL Lymph # (Auto) 900 L (3833-6469) /uL [place] # (Auto) 600 (0-900) /uL Eos # (Auto) 100 (0-450) /uL Baso # (Auto) 100 (0-100) /uL Sodium 137 (137-145) mmol/L Potassium 4.0 (3.4-5.1) mmol/L Chloride 103 (98-107) mmol/L Carbon Dioxide 32 (22-32) mmol/L BUN 13 (7-17) mg/dL Creatinine 0.67 (0.52-1.04) mg/dL Estimated GFR > 60 (>60) mL/min BUN/Creatinine Ratio 19.4 (6-22) Glucose 90 (80-110) mg/dL Calcium 9.7 (8.4-10.2) mg/dL Total Bilirubin 0.4 (0.2-1.3) mg/dL AST 28 (14-36) IU/L ALT 26 (<35) IU/L Alkaline Phosphatase 63 (38-126) U/L NT-Pro-B Natriuret Pep 174 (<450) pg/mL Total Protein 7.5 (6.3-8.2) g/dL Albumin 4.4 (3.5-5.0) g/dL Globulin 3.1 (1.7-4.1) g/dL Albumin/Globulin Ratio 1.4 (1.0-2.8) Imaging Data CT scan - head: Radiologist's Impression: PROCEDURE: CT HEAD/BRAIN WO CON INDICATIONS: progressive R arm weakness TECHNIQUE: Noncontrast 4.5 mm thick angled axial sections acquired from the foramen magnum to the vertex, with coronal and sagittal reformats. For radiation dose reduction, the following was used: automated exposure control, adjustment of mA and/or kV according to patient size. COMPARISON: None. FINDINGS: Image quality: Diagnostic. CSF spaces: Basal cisterns are patent. No extra-axial fluid collections. The ventricles are symmetric in size and shape. Brain: No intracranial bleeds or masses. There is cerebral volume loss for age, with resultant ventricular and sulcal prominence. There are periventricular and deep white matter chronic small vessel ischemic changes. There is intracranial internal carotid artery atherosclerosis. Skull and face: Calvarium and visualized facial bones appear intact, without suspicious lesions. Sinuses: Visualized sinuses and mastoids are clear. IMPRESSION: No acute intracranial pathology. Dictated by: Carly Laws MD, PhD on 04/17/2024 at 11:14 Approved by: Carly Laws MD, PhD on 04/17/2024 at 11:16 CTA - brain/neck: Radiologist's Impression: PROCEDURE: CT ANGIO HEAD AND NECK INDICATIONS: PROGRESSIVE RUE WEAKNESS TECHNIQUE: After the administration of intravenous contrast, 1 mm thick sections acquired from the aortic arch through the [place] of [place]. 3-dimensional zxhbgzm-pauhgbxti-uvdtpuesnw (MIP) and/or volume rendering reformats were acquired of the central intracranial vasculature and neck separately. For radiation dose reduction, the following was used: automated exposure control, adjustment of mA and/or kV according to patient size. COMPARISON: [facility], CT, CT HEAD/BRAIN WO CON, 04/17/2024, 10:27. FINDINGS: Image quality: Diagnostic. HEAD CT ANGIOGRAPHY: Anterior circulation: Intracranial internal carotid arteries are normal in size and flow. The flow within the paired anterior cerebral arteries is normal and symmetric. The flow within the middle cerebral arteries is normal and symmetric. The anterior communicating artery is seen. No aneurysms are seen. Posterior circulation: Visualized portions of the vertebral arteries demonstrate normal caliber, and join to form a normal appearing basilar artery. Flow within the posterior cerebral arteries is normal and symmetric. No aneurysms are seen. NECK CT ANGIOGRAPHY: Carotid system: The great vessels demonstrate a conventional anatomy as they arise from the aortic arch. The origins of the common carotid arteries appear patent. The common carotid arteries demonstrate normal caliber and courses. The bifurcation regions are both widely patent. The internal carotid arteries demonstrate normal calibers and courses. Posterior circulation: The origins of the vertebral arteries both appear widely patent. The more superior extracranial portions of both vertebral arteries also demonstrate normal courses and calibers. They join to form a normal appearing basilar artery. Soft tissues: Visualized neck soft tissues demonstrate no suspicious abnormalities. Bones: No suspicious bony lesions. Visualized cervical spine appears normally aligned. Spine degenerative disc disease and facet arthropathy. IMPRESSION: No large vessel occlusion, vascular stenosis, vascular dissection or aneurysm. Any quantitative measurements of stenosis were performed using NASCET criteria. Dictated by: Carly Laws MD, PhD on 04/17/2024 at 11:28 Approved by: Carly Laws MD, PhD on 04/17/2024 at 11:33 [facility] Narrative Medical decision making narrative: Patient is sent from her physical therapy office for elevated blood pressure readings, however she was at physical therapy for progressive right upper extremity weakness. She states that her doctors are concerned that there may be a neurologic issue rather than an orthopedic issue causing her symptoms. Patient does have profound weakness of her right upper extremity, she has intact biceps strength, but triceps strength is significantly less on the right versus the left. She does have good shrug strength bilaterally. I suspect that this is a peripheral lesion, but patient states she was never had brain imaging before, so we will order CT brain and CT angio of head and neck. Patient had recent MRI of her shoulder that was negative for findings that would explain her symptoms. Chest x-ray taken 1 month ago was unremarkable for acute findings. Laboratory work is reviewed, at patient's baseline. CT brain and CT angio negative for acute findings or CVA to explain patient's symptoms. Vessels and head and neck are wide open and without stenosis. Patient informed of lab and imaging findings. I explained that patient would continue to need workup to evaluate the cause of her peripheral upper extremity weakness. Patient reports a stinging pain in her arm, we will trial gabapentin for symptoms. Additional recommendations for blood pressure medication changes made if patient's blood pressure is not controlled at home. Discharge Plan Departure Patient Disposition: Home Clinical Impression: Muscle right arm weakness, Hypertension Instructions: High Blood Pressure Activity Restrictions/Additional Instructions: Your laboratory work and CT imaging today were normal, I do not know the cause of your progressive right arm weakness, but it was not appear to be a stroke, tumor, or blood clot. Continue to follow up with Neurology and your pain specialist. Your amlodipine was recently increased to 5 mg daily. I recommend increasing to 10 mg daily if you continue to notice high blood pressure. You may also increase your losartan from 25 mg daily to 50 mg daily. Prescriptions: New gabapentin 300 mg capsule 300 mg PO TID Qty: 60 0RF No Action Centrum Silver 0.4-300-250 mg-mcg-mcg Tablet 1 tab PO DAILY Qty: 0 Caltrate 600 plus D 600 mg (1,500 mg)-800 unit Tablet,Chewable 1 tab PO DAILY Qty: 0 Rx Instructions: pt states dose is 400 mg losartan 25 mg tablet 25 mg PO DAILY Qty: 90 1RF Hold Instructions: try CCB while on NSAID amlodipine 2.5 mg tablet 2.5 mg PO DAILY Qty: 30 2RF acetaminophen [Tylenol Extra Strength] 500 mg tablet 1,000 mg PO .qhs PRN meloxicam 7.5 mg tablet 7.5 mg PO BID PRN (Reason: pain) Qty: 60 0RF Referrals: Katy Benitez DO [Primary Care Provider] - Stand Alone Forms: Patient Portal/API
[2024-04-17 10:38] LABS: Add Manual Diff / Slide Review NO; Basophils Absolute Auto 100 /uL (0-100); Basophils Percent Auto 1.1 % (0-2); Eosinophils Absolute Auto 100 /uL (0-450); Eosinophils Percent Auto 1.5 % (2-4); Hematocrit 40.4 % (36-46); Hemoglobin 13.5 g/dL (12.0-16.0); Lymphocytes Absolute Auto 900 /uL (1100-4500); Lymphocytes Percent Auto 15.6 % (25-40); Mean Corpuscular HGB Conc 33.4 % (30-36); Mean Corpuscular Hemoglobin 30.3 PG (26-34); Mean Corpuscular Volume 90.7 fL (80-100); Monocytes Absolute Auto 600 /uL (0-900); Monocytes Percent Auto 11.1 % (3-14); Neutrophils Absolute Auto 3900 /uL (1500-7000); Neutrophils Percent Auto 70.7 % (50-75); Platelet Count 252 X10^3/uL (150-400); Red Blood Cell Count 4.46 X10^6/uL (4.0-5.2); Red Cell Distribution Width 14.7 % (11.6-14.8); White Blood Cell Count 5.6 X10^3/uL (4.5-11.0)
[2024-04-17 10:47] LABS: Alanine Aminotransferase 26 IU/L (<35); Albumin 4.4 g/dL (3.5-5.0); Albumin Globulin Ratio 1.4 (1.0-2.8); Alkaline Phosphatase 63 U/L (38-126); Aspartate Aminotransferase 28 IU/L (14-36); BUN Creatinine Ratio 19.4 (6-22); Bilirubin Total 0.4 mg/dL (0.2-1.3); Blood Urea Nitrogen 13 mg/dL (7-17); Calcium 9.7 mg/dL (8.4-10.2); Carbon Dioxide 32 mmol/L (22-32); Chloride 103 mmol/L (98-107); Estimated Glomerular Filt Rate > 60 mL/min (>60); Globulin 3.1 g/dL (1.7-4.1); Glucose 90 mg/dL (80-110); HEMOLYSIS < 15 (0-50); Sodium 137 mmol/L (137-145); Total Protein 7.5 g/dL (6.3-8.2)
[2024-04-17 10:56] LABS: NT-proBNP (BNP-Adult 18+) 174 pg/mL (<450)
[2024-04-17 11:14] VITALS: O2SAT 87
[2024-04-17 11:16] VITALS: BP 192/84; PULSE 71; O2SAT 99
[2024-04-17 11:30] VITALS: BP 174/80; PULSE 70; O2SAT 97
== END 2024-04-17 12:33 | disposition home or self-care (01) ==
PROVIDERS: Emergency Provider Emergency Medicine; Family Provider Family Medicine; PCP Family Medicine
DX: I10 Essential (primary) hypertension (principal); R53.1 Weakness
CPT/HCPCS: 36415; 70450; 70496; 70498; 80053; 83880; 85025; 99284; Q9967

== ENCOUNTER → 2024-04-25 08:42 | Outpatient (CLI) | payer MEDICARE, SELFPAY | LOC: PHYS 08:44 | PROVIDERS: Family Provider Family Medicine; PCP Family Medicine; Referring Provider Family Medicine; Visit Provider Family Medicine | DX: M75.111 Incomplete rotator cuff tear or rupture of right shoulder, not specified as traumatic (principal); M62.81 Muscle weakness (generalized) | CPT/HCPCS: 95886; 95912 ==

== ENCOUNTER 2024-07-03 13:45 | Outpatient (RCR) | payer MEDICARE, SELFPAY ==
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
--- NOTE | 2024-04-17 10:03 | PT-OP ANOTE ---
Patient into session requesting BP check, comments her cardiac meds are being adjusted, pain meds are not working, has been advised the wrist may be TIA vs carpal tunnel, and to see a neurologist, but cannot get in until May. BP left UE 177/94 HR 73 BPM patient seated at rest. Patient reports feeling fine when questioned regarding chest pain and dizziness. Made PT Brissa Huber aware. Post discussion with PT, patient transported to Emergency department by wheelchair. Patient comments ( on the way to emergency dept ) she is having difficulty taking her BP at home due to her hand being weak.
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
--- NOTE | 2024-05-02 12:47 | PT.OPPOC ---
Physical, Occupational & Speech Therapy At [facility] Current Diagnoses Pain in right shoulder (05/02/24) Stiffness of unspecified shoulder, not elsewhere classified (05/02/24) Other symptoms and signs involving the musculoskeletal system (05/02/24) Weakness (05/02/24) Visit Care Team Role Provider Type Katy Benitez DO Family Provider Physician Primary Care Provider Specialty: Medical Address: [address] [place] [address], [address], [place], [address] Email: [email or web address] Kimble PA-C Attending Provider Advanced A Operator Referring Provider Specialty: Orthopedics Orthopedic Surgery Address: [address] [place] [address], [id number] Fax: Email: [email or web address] Plan Of Care PT-OP-T Assessment and Plan Start: 04/10/24 08:14 Freq: Status: Active Protocol: Document 05/02/24 08:18 NM (Rec: 05/02/24 09:39 NM [id number]) Physical Therapy Assessment Goals Six Impairment quickdash Professor [employer] Goal (LTG) Pt will decrease quickdash score <60% in order to demonstrate improved pain management and activity tolerance LTG Duration 12 weeks GOAL UPDATED Five Impairment strength Professor Of [employer] Goal (LTG) Pt will improve global R shoulder strength to at least 3/5 MMT in order to demonstrate ability to raise arm against gravity and perform all household ADLs. LTG Duration 12 weeks GOAL UPDATED Four Impairment ROM Short Term Goal (STG) Pt will improve R shoulder functional IR AROM to at least her sacrum in order to complete all perineal cleaning and LE dressing 05/02/24: MET- able to reach L5 STG Duration 6 weeks [facility] Goal (LTG) Pt will improve R shoulder functional IR AROM to at least L1 in order to complete all perineal cleaning and LE dressing LTG Duration 12 weeks Three Impairment ROM Professor [employer] Goal (LTG) Pt will improve R shoulder functional ER AROM to at least occiput (apley scratch test) in order to groom her hair LTG Duration 12 weeks GOAL UPDATED Two Impairment ROM Short Term Goal (STG) Pt will improve R shoulder abduction AAROM to at least 90 deg in order to future ADLs STG Duration 6 weeks [facility] Goal (LTG) Pt will improve R shoulder abduction AROM to at least 90 deg in order to perform UE dressing LTG Duration 12 weeks One Impairment ROM Short Term Goal (STG) Pt will improve R shoulder flexion AAROM to at least 90 deg in order to perform ADLs STG Duration 6 weeks Professor [employer] Goal (LTG) Pt will improve R shoulder flexion AROM to at least 90 deg in order to reach overhead for ADLs, exercise LTG Duration 12 weeks Assessment Summary Assessment Pt has been seen x 3 visits since evaluation in March 2024 for R shoulder/arm pain. Since evaluation, pt has had several follow ups with PCP resulting in medication adjustments and due to changes in clinical presentation without change in diagnosis. Pt continues to have significant limitations in R shoulder PROM and AROM against gravity and in gravity minimized positions; she is also has significant limitations in R wrist flexion /extension and finger flex/ext . Pt able to flex wrist and fingers minimally against gravity through partial ROM, but unable to extend wrist/ fingers against gravity or with gravity minimized position. She has trace activation of wrist/finger extensors and deltoid, and only mild activation in gravity minimized of rotator cuff ER and wrist/finger flexors. Pt has weak biceps activation against gravity. Pt has small improvements in R shoulder ROM after starting gabapentin but still significantly limited in pain management and ability to perform ADLs/IADLs. She has had EMG study and reports several MRIS; she also has an emergent referral to neurology in May. Due to current symptoms and to maximize current PT visits available with insurance, pt and PT discussed moving to 1x/wk to maintain ROM and available strength while pt awaits neurology appointment. Pt would benefit from skilled PT to maintain ROM and promote muscle activation while pt waits for further assessment. Physical Therapy Plan Frequency and Duration Frequency of Treatment 1-2x/Week Duration of treatment (weeks) 12 Plan of Care Start Date 05/02/24 Plan of Care End Date 07/27/24 Therapeutic Interventions Therapeutic Interventions Balance Training,Gait Training ,Home Exercise Program,Joint Mobilizations,Manual Therapy, Neuromuscular Re-education, Orthotic/Prosthetic Management ,Patient/Caregiver Education, Self-Care/Home Management, Sensory Integration,Soft Tissue Mobilization,Taping, Therapeutic Activities, Therapeutic Exercises, Vestibular Rehabilitation Modalities Cold Pack/Ice Massage,Electric Stimulation,Hot Packs, Ultrasound Next Visit Focus/Plan Next Note Type Treatment Note Next Visit Plan Continue with tendon glides, finger opposition, scapular mobilizations and grade II GHJ mobilizations Scapulothoracic mobilization, periscapular strengthening, shoulder isometrics (gentle), PROM/AAROM/AROM of R shoulder and wrist ext No Cervical spine stretch, minimal shoulder stretch Manual therapy as tolerated Plan of Care Dates Plan of Care Start Date 05/02/24 Plan of Care End Date 07/27/24 Electronically Signed by: Brissa Huber, PT 05/08/24 [id number] If you are in agreement with this Plan of Care, please return a signed and dated copy. I have reviewed this Plan of Care and certify that the skilled therapy services above are required to meet the patient?s needs. Physician Signature Date Printed Name and Credentials Clinical Instructor Signature Printed Name and Credentials
--- NOTE | 2024-05-07 16:19 | PT-OP ANOTE ---
PT called pt at 1619 regarding pt message about increased edema in hand since last session. Pt reports increased skin tightness along the back of her R hand and redness at her knuckles but denies swelling further up the arm, redness along arm, warmth, changes in sensation, changes in numbness or tingling, or difficulty breathing. States just achy all the time now. No swelling in morning but worse with activity. Pt also recently tried a wrisxt brace over the weekend to help with wrist pain and provide stability; states did not help but did not make edema worse. Does not know if edema started before or after wrist brace. She tried newly prescribed meloxicam for anti-inflammatory, which helped a little. Has been icing but not elevating, no change to ADLs. Since pt has had edema in R wrist since evaluation, PT recommended pt try elevation along with cold to assist with edema management, educating to follow up with PCP if does not resolve or to ED if signs of blood clot (educated on signs of blood clot above), emphasizing emergent situation especially if short of breath. Pt verbalizes agreement.
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
== END 2024-07-18 08:05 | disposition home or self-care (01) ==
LOC: PHYS 13:45
PROVIDERS: Family Provider Family Medicine; PCP Family Medicine; Referring Provider Physician Assistant Surgical; Visit Provider Physician Assistant Surgical
DX: M25.511 Pain in right shoulder (principal); R29.898 Other symptoms and signs involving the musculoskeletal system; M25.619 Stiffness of unspecified shoulder, not elsewhere classified; R53.1 Weakness
CPT/HCPCS: 97032; 97110; 97140; 97162

== ENCOUNTER → 2024-08-28 16:41 | Outpatient (CLI) | payer MEDICARE, SELFPAY ==
[2024-08-28 17:50] LABS: Add Manual Diff / Slide Review NO; Basophils Absolute Auto 100 /uL (0-100); Basophils Percent Auto 1.1 % (0-2); Eosinophils Absolute Auto 0 /uL (0-450); Eosinophils Percent Auto 0.6 % (2-4); Hematocrit 37.3 % (36-46); Hemoglobin 12.6 g/dL (12.0-16.0); Lymphocytes Absolute Auto 1400 /uL (1100-4500); Lymphocytes Percent Auto 19.1 % (25-40); Mean Corpuscular HGB Conc 33.9 % (30-36); Mean Corpuscular Hemoglobin 30.4 PG (26-34); Mean Corpuscular Volume 89.7 fL (80-100); Monocytes Absolute Auto 1000 /uL (0-900); Monocytes Percent Auto 13.8 % (3-14); Neutrophils Absolute Auto 4800 /uL (1500-7000); Neutrophils Percent Auto 65.4 % (50-75); Platelet Count 292 X10^3/uL (150-400); Red Blood Cell Count 4.16 X10^6/uL (4.0-5.2); Red Cell Distribution Width 13.3 % (11.6-14.8); White Blood Cell Count 7.4 X10^3/uL (4.5-11.0)
[2024-08-28 18:45] LABS: Monotest Negative (Negative)
[2024-08-28 19:50] LABS: Influenza A - CEPHEID Flu A NEGATIVE (NEGATIVE); Influenza B - CEPHEID Flu B NEGATIVE (NEGATIVE); Respiratory Syncytial Virus Negative (Negative)
[2024-08-28 20:07] LABS: COVID-19 CEPHEID 4-PLEX PCR Negative (Negative)
== END ==
PROVIDERS: Family Provider Family Medicine; PCP Family Medicine; Referring Provider Physician Assistant; Visit Provider Physician Assistant
DX: R50.9 Fever, unspecified (principal); R59.9 Enlarged lymph nodes, unspecified; R13.10 Dysphagia, unspecified; R53.83 Other fatigue
CPT/HCPCS: 0241U; 36415; 85025; 86318; 87070

== ENCOUNTER → 2025-04-11 11:05 | Outpatient (CLI) | payer MEDICARE, SELFPAY ==
[2025-04-11 13:06] LABS: Alanine Aminotransferase 14 IU/L (<35); Albumin 4.3 g/dL (3.5-5.0); Albumin Globulin Ratio 1.1 (1.0-2.8); Alkaline Phosphatase 88 U/L (38-126); Aspartate Aminotransferase 25 IU/L (14-36); BUN Creatinine Ratio 24.3 (6-22); Bilirubin Total 0.4 mg/dL (0.2-1.3); Blood Urea Nitrogen 18 mg/dL (7-17); Calcium 9.2 mg/dL (8.4-10.2); Carbon Dioxide 28 mmol/L (22-32); Chloride 100 mmol/L (98-107); Cholesterol 241 mg/dL (140-199); Estimated Glomerular Filt Rate > 60 mL/min (>60); Globulin 3.9 g/dL (1.7-4.1); Glucose 84 mg/dL (70-99); HDL Cholesterol 64 mg/dL (40-60); HEMOLYSIS < 15 (0-50); LDL Cholesterol Calculated 156 mg/dL (<100); Potassium 4.4 mmol/L (3.4-5.1); Sodium 137 mmol/L (137-145); Total Protein 8.2 g/dL (6.3-8.2); Triglycerides 106 mg/dL (35-150)
[2025-04-12 03:39] LABS: CRP, High Sensitivity 11.24 mg/L (0.00-3.00)
== END ==
PROVIDERS: Family Provider Family Medicine; PCP Family Medicine; Referring Provider Family Medicine; Visit Provider Family Medicine
DX: I10 Essential (primary) hypertension (principal); E78.2 Mixed hyperlipidemia
CPT/HCPCS: 36415; 80053; 80061; 86140